=== PATIENT | female | born 1930 | race African-American/Black ===

== ENCOUNTER 2016-12-30 15:32 | Inpatient (IN) ==
--- NOTE | 2016-12-30 15:39 | Emergency Department Note ---
Disposition Clinical Impression: Lactic acidosis Altered mental status Qualifiers: Altered mental status type: disorientation Qualified Code(s): R41.0 - Disorientation, unspecified Sepsis Qualifiers: Sepsis type: sepsis due to unspecified organism Qualified Code(s): A41.9 - Sepsis, unspecified organism Disposition: Admitted As Inpatient Condition: Fair Altered Mental Status HPI - General Chief Complaint: ED Altered Mental Status Stated Complaint: ams Time Seen by Provider: 12/30/16 15:35 Source: EMS Mode of arrival: EMS Limitations: altered mental status Nursing Notes Reviewed: Yes Vital Signs Reviewed: Yes - History of Present Illness HPI Narrative: 86-year-old female history of hypertension hyperlipidemia diabetes presents to the ER from her nursing facility due to altered mental status. EMS reports she has a baseline history of dementia as per the nursing facility but that she has become more confused and less responsive they are over the last few days. They report fevers at the facility of 100.4. Patient has been less responsive to staff. They report that she is usually alert and talkative. Patient presents initially not answering many questions but will open her eyes intermittently and answer appropriately. She denies fevers, chest pain, shortness of breath or cough. She did state she had nausea. No other complaints. MD complaint: altered mental status Onset (ago): day(s) Timing confirmed by: caregiver Pain Severity: none Consistency of Symptoms: getting worse Associated symptoms: Reports: nausea/vomiting. Denies: chest pain, cough, fever - Related Data Home Medications Medication Instructions Recorded Confirmed Acetaminophen [Tylenol] 500 mg PO TID PRN 12/30/16 12/30/16 Atorvastatin [Lipitor] 10 mg PO HS 12/30/16 12/30/16 Clopidogrel Bisulfate [Plavix] 75 mg PO DAILY 12/30/16 12/30/16 Donepezil [Aricept] 10 mg PO HS 12/30/16 12/30/16 Ergocalciferol (VITAMIN D2) 50,000 unit PO QWEEK 12/30/16 12/30/16 [Vitamin D2] Furosemide [Lasix] 20 mg PO DAILY 12/30/16 12/30/16 Loratadine [Allergy Relief] 10 mg PO DAILY 12/30/16 12/30/16 Memantine HCl [Namenda Xr] 28 mg PO DAILY 08/18/17 08/18/17 Metformin HCl [Metformin HCl ER] 750 mg PO DAILY 12/30/16 12/30/16 Sertraline [Zoloft] 100 mg PO DAILY 12/30/16 12/30/16 amLODIPine [Norvasc] 5 mg PO DAILY 12/30/16 12/30/16 Allergies Allergy/AdvReac Type Severity Reaction Status Date / Time ciprofloxacin Allergy Anaphylaxis Verified 12/30/16 15:51 codeine Allergy Anaphylaxis Verified 12/30/16 15:51 Penicillins Allergy Anaphylaxis Verified 12/30/16 15:51 tetanus toxoid, adsorbed Allergy Anaphylaxis Verified 12/30/16 15:51 Tetracycline Allergy Anaphylaxis Verified 12/30/16 15:51 All systems ED: reviewed and negative except as stated. Constitutional: Denies: fever Cardiovascular: Denies: chest pain Respiratory: Denies: cough, dyspnea Gastrointestinal: Reports: nausea. Denies: abdominal pain, vomiting, diarrhea Past Medical History - Past Medical History Attestation: Yes The following information was validated with the patient. Source: patient Medical history: Reports: diabetes, hyperlipidemia, hypertension Surgical history: Reports: non-contributory Physical Exam - General Limitations: altered mental status General appearance: alert, other - Head Head exam: atraumatic, normocephalic, normal inspection - Eye Eye exam: Present: normal appearance, EOMI - ENT ENT exam: normal exam - Neck Neck exam: Present: normal inspection, full ROM - Chest Chest inspection: Present: normal inspection, symmetric chest wall rise - Respiratory Respiratory exam: Present: other (Diminished breath sounds bilaterally with rhonchi in all lung stoddard). Absent: prolonged expiratory phase - Cardiovascular Cardiovascular exam: Present: regular rate, normal rhythm, normal heart sounds - Abdominal Exam Abdominal exam: Present: soft, Non-Tender. Absent: tenderness - Extremities Exam Extremities exam: Present: normal inspection, full ROM - Expanded Upper Extremity Exam Shoulder exam: Present: normal inspection, full ROM Arm exam: Present: normal inspection, full ROM Elbow exam: Present: normal inspection, full ROM Forearm/Wrist exam: Present: normal inspection, full ROM Hand exam: Present: normal inspection, full ROM - Expanded Lower Extremity Exam Hip/Pelvis exam: Present: normal inspection, full ROM Upper leg exam: Present: normal inspection, full ROM Knee exam: Present: normal inspection, full ROM Lower leg exam: Present: normal inspection, full ROM Ankle exam: Present: normal inspection, full ROM Foot/toe exam: Present: normal inspection, full ROM - Neurological Exam Neurological exam: Present: alert, other (Patient intermittently answers questions correctly. Moves all extremities. No focal deficits.) - Skin Skin exam: Present: warm, dry, intact, normal color Course Course Narrative: Patient is seated examined. Vital signs reviewed. We will get an EKG chest x- ray CT scan of the head, labs urinalysis lactate and blood cultures. She is afebrile here. - Reevaluation(s) Reevaluation #1: We attempted to perform a lumbar puncture given her sepsis of unknown origin. Patient has what feels like a very arthritic spine and we were unable to collect fluid. We will treat her empirically. Vital Signs Temperature 97.7 F 12/30/16 15:34 Pulse Rate 69 12/30/16 15:34 Respiratory Rate 18 12/30/16 15:34 Blood Pressure 126/53 12/30/16 15:34 O2 Sat by Pulse Oximetry 95 12/30/16 15:34 Temperature 98.3 F 01/02/17 03:35 Pulse Rate 70 01/02/17 03:35 Respiratory Rate 18 01/02/17 03:35 Blood Pressure 117/74 01/02/17 03:35 O2 Sat by Pulse Oximetry 94 01/02/17 03:35 Oxygen Delivery Oxygen Delivery Room Air Altered Mental Status - MDM Narrative Medical decision making narrative: 86-year-old female presents to the ER due to altered mental status. Reports a baseline history of dementia. Here she is alert intermittently answering some questions. Her EKG is nonischemic. Chest x-ray is unremarkable. CT scan of the head shows no acute abnormalities. Labwork she has a slight white count of 12 and a urinalysis that does not really show UTI. Her lactate was elevated over 4. We gave her 2 L of IV fluids, vancomycin and Rocephin and will admit to the hospitalist for altered mental status, sepsis of unknown origin. Patient signed out to hospitalist. They request a CT of the abd/pelvis for evaluation of lactic acidosis. CT ordered. - Lab Data Lab results reviewed: Yes I reviewed the patient's lab results. Result diagrams: 01/01/17 03:56 12/31/16 04:41 Lab Results 12/30/16 12/30/16 12/30/16 Range/Units 16:08 16:08 16:08 WBC 12.2 H (4.3-11.1) K/mcL RBC 4.43 (3.82-4.97) M/mcL Hgb 11.5 (11.5-15.4) g/dL Hct 38.5 (35.3-44.9) % MCV 86.9 (83.0-100.0) fL MCH 26.0 L (28.0-33.3) pg MCHC 29.9 L (31.6-35.5) g/dL RDW 13.8 (11.5-14.5) % Plt Count 189 (140-400) K/mcL MPV 9.7 (9.4-12.4) fL Immature Gran % 0.5 (0-4) % Seg Neutrophils % 94.0 % Lymphocytes % 4.6 % Monocytes % 0.8 % Eosinophils % 0.0 % Basophils % 0.1 % Neutrophils # 11.5 H (1.6-8.9) K/mcL Lymphocytes # 0.6 (0.6-4.6) K/mcL Monocytes # 0.1 (0.0-1.3) K/mcL Eosinophils # 0.0 (0.0-0.6) K/mcL Basophils # 0.0 (0.0-0.2) K/mcL PT 13.1 H (9.4-12.1) Seconds INR 1.2 Sodium 139 (136-145) mEq/L Potassium 4.7 H (3.5-4.5) mEq/L Chloride 103 (98-109) mEq/L Carbon Dioxide 24 (19-29) mEq/L BUN 25 H (7-20) mg/dL Creatinine 1.43 H (0.57-1.11) mg/dL Est GFR ( Amer) 42 L (> 60) Est GFR (Non-Af Amer) 35 L (> 60) BUN/Creatinine Ratio 17 (6-26) Glucose 252 H (70-99) mg/dL POC Glucose (58-89) Calculated Osmolality 301 H (280-300) Lactic Acid (0.5-2.2) mmol/L Calcium 9.3 (8.6-10.8) mg/dL Total Bilirubin < 0.3 (0.2-1.2) mg/dL Direct Bilirubin 0.1 (0.0-0.5) mg/dL Indirect Bilirubin 0.2 (0.0-1.2) mg/dL AST 15 (5-34) Units/L ALT 9 (0-55) Units/L Alkaline Phosphatase 89 (38-126) Units/L Ammonia (18-72) mcmol/L Troponin I (0-0.03) ng/mL Serum Total Protein 7.0 (6.0-8.3) g/dL Albumin 2.7 L (3.5-5.0) g/dL Globulin 4.3 H (2.4-3.5) g/dL Albumin/Globulin Ratio 0.6 L (1.1-2.2) TSH 0.596 (0.350-4.840) mcIU/mL Urine Color (Yellow) Urine Clarity (Clear) Urine pH (5.0-8.0) pH Units Ur Specific Stigler (1.010-1.025) Urine Protein (Neg-Trace) mg/dL Urine Glucose (UA) (Normal) mg/dL Urine Ketones (Negative) mg/dL Urine Blood (Negative) Urine Nitrite (Negative) Urine Bilirubin (Negative) Urine Urobilinogen (Normal) mg/dL Ur Leukocyte Esterase (Negative) Urine Microscopic RBC (0-3) per hpf Urine Microscopic WBC (0-3) per hpf Ur Squamous Epith Cells (None-Few) per lpf Urine Bacteria (None-Few) per hpf Hyaline Casts (None-Few) per lpf Ur Culture Indicated? (NO) 12/30/16 12/30/16 12/30/16 Range/Units 16:08 16:08 16:08 WBC (4.3-11.1) K/mcL RBC (3.82-4.97) M/mcL Hgb (11.5-15.4) g/dL Hct (35.3-44.9) % MCV (83.0-100.0) fL MCH (28.0-33.3) pg MCHC (31.6-35.5) g/dL RDW (11.5-14.5) % Plt Count (140-400) K/mcL MPV (9.4-12.4) fL Immature Gran % (0-4) % Seg Neutrophils % % Lymphocytes % % Monocytes % % Eosinophils % % Basophils % % Neutrophils # (1.6-8.9) K/mcL Lymphocytes # (0.6-4.6) K/mcL Monocytes # (0.0-1.3) K/mcL Eosinophils # (0.0-0.6) K/mcL Basophils # (0.0-0.2) K/mcL PT (9.4-12.1) Seconds INR Sodium (136-145) mEq/L Potassium (3.5-4.5) mEq/L Chloride (98-109) mEq/L Carbon Dioxide (19-29) mEq/L BUN (7-20) mg/dL Creatinine (0.57-1.11) mg/dL Est GFR ( Amer) (> 60) Est GFR (Non-Af Amer) (> 60) BUN/Creatinine Ratio (6-26) Glucose (70-99) mg/dL POC Glucose (58-89) Calculated Osmolality (280-300) Lactic Acid 4.8 H* (0.5-2.2) mmol/L Calcium (8.6-10.8) mg/dL Total Bilirubin (0.2-1.2) mg/dL Direct Bilirubin (0.0-0.5) mg/dL Indirect Bilirubin (0.0-1.2) mg/dL AST (5-34) Units/L ALT (0-55) Units/L Alkaline Phosphatase (38-126) Units/L Ammonia 18 (18-72) mcmol/L Troponin I 0.02 (0-0.03) ng/mL Serum Total Protein (6.0-8.3) g/dL Albumin (3.5-5.0) g/dL Globulin (2.4-3.5) g/dL Albumin/Globulin Ratio (1.1-2.2) TSH (0.350-4.840) mcIU/mL Urine Color (Yellow) Urine Clarity (Clear) Urine pH (5.0-8.0) pH Units Ur Specific Stigler (1.010-1.025) Urine Protein (Neg-Trace) mg/dL Urine Glucose (UA) (Normal) mg/dL Urine Ketones (Negative) mg/dL Urine Blood (Negative) Urine Nitrite (Negative) Urine Bilirubin (Negative) Urine Urobilinogen (Normal) mg/dL Ur Leukocyte Esterase (Negative) Urine Microscopic RBC (0-3) per hpf Urine Microscopic WBC (0-3) per hpf Ur Squamous Epith Cells (None-Few) per lpf Urine Bacteria (None-Few) per hpf Hyaline Casts (None-Few) per lpf Ur Culture Indicated? (NO) 12/30/16 12/30/16 12/30/16 Range/Units 16:11 16:41 20:38 WBC (4.3-11.1) K/mcL RBC (3.82-4.97) M/mcL Hgb (11.5-15.4) g/dL Hct (35.3-44.9) % MCV (83.0-100.0) fL MCH (28.0-33.3) pg MCHC (31.6-35.5) g/dL RDW (11.5-14.5) % Plt Count (140-400) K/mcL MPV (9.4-12.4) fL Immature Gran % (0-4) % Seg Neutrophils % % Lymphocytes % % Monocytes % % Eosinophils % % Basophils % % Neutrophils # (1.6-8.9) K/mcL Lymphocytes # (0.6-4.6) K/mcL Monocytes # (0.0-1.3) K/mcL Eosinophils # (0.0-0.6) K/mcL Basophils # (0.0-0.2) K/mcL PT (9.4-12.1) Seconds INR Sodium (136-145) mEq/L Potassium (3.5-4.5) mEq/L Chloride (98-109) mEq/L Carbon Dioxide (19-29) mEq/L BUN (7-20) mg/dL Creatinine (0.57-1.11) mg/dL Est GFR ( Amer) (> 60) Est GFR (Non-Af Amer) (> 60) BUN/Creatinine Ratio (6-26) Glucose (70-99) mg/dL POC Glucose 248 H (58-89) Calculated Osmolality (280-300) Lactic Acid 2.4 H (0.5-2.2) mmol/L Calcium (8.6-10.8) mg/dL Total Bilirubin (0.2-1.2) mg/dL Direct Bilirubin (0.0-0.5) mg/dL Indirect Bilirubin (0.0-1.2) mg/dL AST (5-34) Units/L ALT (0-55) Units/L Alkaline Phosphatase (38-126) Units/L Ammonia (18-72) mcmol/L Troponin I (0-0.03) ng/mL Serum Total Protein (6.0-8.3) g/dL Albumin (3.5-5.0) g/dL Globulin (2.4-3.5) g/dL Albumin/Globulin Ratio (1.1-2.2) TSH (0.350-4.840) mcIU/mL Urine Color Dark Yellow (Yellow) Urine Clarity Cloudy A (Clear) Urine pH 5.0 (5.0-8.0) pH Units Ur Specific Stigler 1.027 H (1.010-1.025) Urine Protein 30 H (Neg-Trace) mg/dL Urine Glucose (UA) Normal (Normal) mg/dL Urine Ketones Trace H (Negative) mg/dL Urine Blood Negative (Negative) Urine Nitrite Negative (Negative) Urine Bilirubin Small H (Negative) Urine Urobilinogen Normal (Normal) mg/dL Ur Leukocyte Esterase Trace H (Negative) Urine Microscopic RBC 5-15 H (0-3) per hpf Urine Microscopic WBC 3-5 H (0-3) per hpf Ur Squamous Epith Cells Many H (None-Few) per lpf Urine Bacteria None Seen (None-Few) per hpf Hyaline Casts Many H (None-Few) per lpf Ur Culture Indicated? YES A (NO) 12/31/16 Range/Units 01:25 WBC (4.3-11.1) K/mcL RBC (3.82-4.97) M/mcL Hgb (11.5-15.4) g/dL Hct (35.3-44.9) % MCV (83.0-100.0) fL MCH (28.0-33.3) pg MCHC (31.6-35.5) g/dL RDW (11.5-14.5) % Plt Count (140-400) K/mcL MPV (9.4-12.4) fL Immature Gran % (0-4) % Seg Neutrophils % % Lymphocytes % % Monocytes % % Eosinophils % % Basophils % % Neutrophils # (1.6-8.9) K/mcL Lymphocytes # (0.6-4.6) K/mcL Monocytes # (0.0-1.3) K/mcL Eosinophils # (0.0-0.6) K/mcL Basophils # (0.0-0.2) K/mcL PT (9.4-12.1) Seconds INR Sodium (136-145) mEq/L Potassium (3.5-4.5) mEq/L Chloride (98-109) mEq/L Carbon Dioxide (19-29) mEq/L BUN (7-20) mg/dL Creatinine (0.57-1.11) mg/dL Est GFR ( Amer) (> 60) Est GFR (Non-Af Amer) (> 60) BUN/Creatinine Ratio (6-26) Glucose (70-99) mg/dL POC Glucose 194 H (58-89) Calculated Osmolality (280-300) Lactic Acid (0.5-2.2) mmol/L Calcium (8.6-10.8) mg/dL Total Bilirubin (0.2-1.2) mg/dL Direct Bilirubin (0.0-0.5) mg/dL Indirect Bilirubin (0.0-1.2) mg/dL AST (5-34) Units/L ALT (0-55) Units/L Alkaline Phosphatase (38-126) Units/L Ammonia (18-72) mcmol/L Troponin I (0-0.03) ng/mL Serum Total Protein (6.0-8.3) g/dL Albumin (3.5-5.0) g/dL Globulin (2.4-3.5) g/dL Albumin/Globulin Ratio (1.1-2.2) TSH (0.350-4.840) mcIU/mL Urine Color (Yellow) Urine Clarity (Clear) Urine pH (5.0-8.0) pH Units Ur Specific Stigler (1.010-1.025) Urine Protein (Neg-Trace) mg/dL Urine Glucose (UA) (Normal) mg/dL Urine Ketones (Negative) mg/dL Urine Blood (Negative) Urine Nitrite (Negative) Urine Bilirubin (Negative) Urine Urobilinogen (Normal) mg/dL Ur Leukocyte Esterase (Negative) Urine Microscopic RBC (0-3) per hpf Urine Microscopic WBC (0-3) per hpf Ur Squamous Epith Cells (None-Few) per lpf Urine Bacteria (None-Few) per hpf Hyaline Casts (None-Few) per lpf Ur Culture Indicated? (NO) - Radiology Data Radiology results reviewed: Yes I reviewed the patient's radiology results. Chest X-Ray 12/30/16 15:36 IMPRESSION: Cardiomegaly with no acute cardiopulmonary disease D/ / Giovanny Curtis MD / Giovanny Curtis MD Interpreting Provider: Giovanny Curtis MD Head CT 12/30/16 15:36 IMPRESSION: No acute intracranial abnormality. Diffuse mucosal thickening consistent with sinusitis. Left maxillary air-fluid level suggests acute component D/ / Gopal Longoria MD / Gopal Longoria MD Interpreting Provider: Gopal Longoria MD - EKG Data EKG attestation: Yes I reviewed and interpreted this EKG. EKG results narrative: EKG demonstrates sinus rhythm with a left bundle-branch block with a rate of 67 bpm. Prolonged IL interval of 205. QRS duration [address]-T wave changes in the lateral and inferior leads likely secondary to bundle branch block. No ST elevations or depressions. No acute ischemic findings. No significant changes from previous EKG dated 11/17/14. Attestation Statement - Attestation Attestation: I examined this patient and my medical decision-making was reviewed with the Resident Physician. I agree with the documented findings, disposition and treatment plan as described except to the extent set forth below. Patient to emergency department with altered mental status. Patient is usually awake and alert however they state today she was more somnolent. They state she had a fever at the shelter. On exam she is sleeping. She arouses to verbal stimulus. She follows basic commands. Plan. CT head with septic workup. Patient with elevated white count and lactate. She would meet septic shock criteria however we have no source. Attempt at LP unsuccessfully. Starting emperic antibiotics and will admit.
[2016-12-30 16:19] LABS: Basophils % 0.1 %; Hematocrit 38.5 % (35.3-44.9); Hemoglobin 11.5 g/dL (11.5-15.4); Immature Granulocytes % 0.5 % (0-4); Lymphocytes # 0.6 K/mcL (0.6-4.6); Lymphocytes % 4.6 %; Mean Corpuscular HGB Conc 29.9 g/dL (31.6-35.5); Mean Corpuscular Volume 86.9 fL (83.0-100.0); Mean Platelet Volume 9.7 fL (9.4-12.4); Monocytes # 0.1 K/mcL (0.0-1.3); Monocytes % 0.8 %; Neutrophils # 11.5 K/mcL (1.6-8.9); Platelet Count 189 K/mcL (140-400); Red Blood Count 4.43 M/mcL (3.82-4.97); Red Cell Distribution Width 13.8 % (11.5-14.5)
[2016-12-30 16:24] LABS: INR 1.2; Prothrombin Time 13.1 Seconds (9.4-12.1)
[2016-12-30] MEDS ORDERED: 0.9 % Sodium Chloride 1,000 ML IVC ONE ×2 (16:32→18:40)
[2016-12-30 16:35] LABS: Alanine Aminotransferase 9 Units/L (0-55); Albumin 2.7 g/dL (3.5-5.0); Albumin/Globulin Ratio 0.6 (1.1-2.2); Alkaline Phosphatase 89 Units/L (38-126); Aspartate Amino Transferase 15 Units/L (5-34); BUN/Creatinine Ratio 17 (6-26); Bilirubin,Direct 0.1 mg/dL (0.0-0.5); Bilirubin,Indirect 0.2 mg/dL (0.0-1.2); Blood Urea Nitrogen 25 mg/dL (7-20); Calcium 9.3 mg/dL (8.6-10.8); Carbon Dioxide 24 mEq/L (19-29); Chloride 103 mEq/L (98-109); Globulin 4.3 g/dL (2.4-3.5); Glucose 252 mg/dL (70-99); Osmolality,Calculated 301 (280-300); Potassium 4.7 mEq/L (3.5-4.5); Sodium 139 mEq/L (136-145); eGFR For African Americans 42 (> 60); eGFR For Non-African Americans 35 (> 60)
[2016-12-30 16:36] LABS: Bilirubin,Total < 0.3 mg/dL (0.2-1.2)
[2016-12-30 16:54] LABS: Bilirubin,Urine Small (Negative); Blood,Urine Negative (Negative); Clarity,Urine Cloudy (Clear); Color,Urine Dark Yellow (Yellow); Glucose,Urine (UA) Normal (Normal); Ketones,Urine Trace mg/dL (Negative); Leukocyte Esterase,Urine Trace (Negative); Nitrite,Urine Negative (Negative); Protein,Urine 30 mg/dL (Neg-Trace); Specific Gravity,Urine 1.027 (1.010-1.025); Urobilinogen,Urine Normal (Normal)
[2016-12-30 16:56] LABS: Thyroid Stimulating Hormone 0.596 mcIU/mL (0.350-4.840)
[2016-12-30 16:56] LABS: Bacteria,Urine None Seen per hpf (None-Few); Squamous Epithelial Cell,Urine Many per lpf (None-Few)
[2016-12-30 17:06] LABS: Hyaline Casts,Urine Many per lpf (None-Few)
[2016-12-30] MEDS ORDERED: *HR* Midazolam HCl 2 MG/2 ML VIAL IVP ONE (17:35)
[2016-12-30] MEDS ORDERED: Vancomycin 1,500 MG in D5% in Water 250 ML IVPB ONE (18:09)
[2016-12-30] MEDS ORDERED: Acetaminophen 325 MG TABLET PO PRN (21:46)
[2016-12-30] MEDS ORDERED: Dextrose Gel 15 GM PO PRN ×2 (21:53)
[2016-12-30] MEDS ORDERED: *HR* Dextrose 50 % in Water (Syg) 50 ML SYRINGE IVP PRN (21:53)
[2016-12-30] MEDS ORDERED: D5% in Water 1,000 ML IVC PRN (21:53)
--- NOTE | 2016-12-30 21:58 | Internal Med History&Physical ---
<Alberto Stubbs - Last Filed: 12/30/16 23:16> Date of Encounter: 12/30/16 Time of Encounter: 23:16 Assessment and Plan (1) Sepsis Current visit: Yes Status: Acute 86 y/o female presents with chief complaint of "altered mental status. Presents from senior living found to be less responsive, confused the past few days the temperature 100.4 Baseline Alzheimer's dementia only oriented to self According to daughter currently she is at baseline Lactic acidosis 4.8>>2.[address] head no acute changes CT abdomen and pelvis left lower lobe infiltrates and air in the bladder Chest x-ray: Cardiomegaly source of infection: pneumonia, UTI Plan: Ceftriaxone, azithromycin Blood cultures pending Sputum culture Urine culture Qualifiers: Sepsis type: sepsis due to unspecified organism Qualified Code(s): A41.9 - Sepsis, unspecified organism (2) Lactic acidosis Current visit: Yes Status: Acute Secondary to sepsis. Likely from underlying pneumonia or UTI. Trending down Plan: Treat underlying infection IV fluids (3) Altered mental status Current visit: Yes Status: Acute Likely secondary to infection According to daughter patient is now back to baseline. Plan: Continue to monitor. Treat underlying infection as above Qualifiers: Altered mental status type: disorientation Qualified Code(s): R41.0 - Disorientation, unspecified (4) Community acquired pneumonia Current visit: Yes Status: Acute CT scan indicates infiltrates and left lower lobe lactic acidosis, confusion and lung exam decreased breath sounds, coarse breath sounds Patient uses 3 L oxygen at nursing facility Currently using 2 L with saturation of 93% Plan: Ceftriaxone and azithromycin Await culture sensitivities DuoNeb's scheduled Qualifiers: Laterality: left Lung location: lower lobe of lung Qualified Code(s): J18.1 - Lobar pneumonia, unspecified organism (5) History of CVA (cerebrovascular accident) Current visit: Yes Status: Acute 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 I would like to have speech evaluate patient for needs of a modified diet. 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 This is complicated by history of hemorrhagic stroke which greatly accelerated or her dementia Plan: Continue home medications. Qualifiers: Alzheimer's disease onset: late-onset Dementia behavioral disturbance: without behavioral disturbance Qualified Code(s): G30.1 - Alzheimer's disease with late onset; F02.80 - Dementia in other diseases classified elsewhere without behavioral disturbance (8) History of depression Current visit: Yes Status: Acute History of depression. Stable. Continue sertraline (9) Hypertension Current visit: Yes Status: Acute Stable. Continue amlodipine Qualifiers: Hypertension type: essential hypertension Qualified Code(s): I10 - Essential (primary) hypertension (10) DVT prophylaxis Current visit: Yes Status: Acute Heparin subcutaneous (11) NIKUNJ (acute kidney injury) Current visit: Yes Status: Acute Secondary to sepsis Patient's creatinine is above baseline of 1.0 Currently 1.43 Plan: IV fluids Avoid contrast, NSAIDs BMP in the morning Internal Medicine - H&P: HPI Chief complaint: ams Admitted From: Long-term Nursing Facility Plans for Post Hospital Care: Transfer Long-Term Care History of present illness: Ms. Madrid is a 86 year old female presents from nursing facility with altered mental status. Patient has baseline dementia and is usually conversational however only alert and oriented to self but not to place or time (confirmed by daughter). Patient was sent to ER by nursing facility as she was confused and less responsive in the past few days and had a temperature 100.4. During my evaluation of the patient, she is awake and alert to self. Pleasant and very talkative, follows commands. ER workup showed the patient had a mild leukocytosis, lactic acidosis, urinalysis (dirty catch). Daughter states that her mental status today is no different than when she saw patient 3 months ago. 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 ) - Social History Smoking Status: Never smoker Smokeless Tobacco Status: No Alcohol use: none Drug use: none - Family History Brother Living Status: Hx Family Cardiac Disorders: Yes (HTN) Hx Family Neurologic Disorders: Yes (CVA) Hx Family Psychosocial Disorders: Yes (Alcoholism) Son Hx Family Cardiac Disorders: Yes Hx Family GI Disorders: Yes (hepatitis) Hx Family Endocrine Disorder: Yes (diabetes) Internal Medicine - H&P: Meds Acetaminophen [Tylenol] 500 mg PO TID PRN 12/30/16 [History] Atorvastatin [Lipitor] 10 mg PO HS 12/30/16 [History] Clopidogrel Bisulfate [Plavix] 75 mg PO DAILY 12/30/16 [History] Donepezil [Aricept] 10 mg PO HS 12/30/16 [History] Ergocalciferol (VITAMIN D2) [Vitamin D2] 50,000 unit PO QWEEK 12/30/16 [History] Furosemide [Lasix] 20 mg PO DAILY 12/30/16 [History] Loratadine [Allergy Relief] 10 mg PO DAILY 12/30/16 [History] Memantine HCl [Namenda Xr] 28 mg PO DAILY 12/30/16 [History] Metformin HCl [Metformin HCl ER] 750 mg PO DAILY 12/30/16 [History] Sertraline [Zoloft] 100 mg PO DAILY 12/30/16 [History] amLODIPine [Norvasc] 5 mg PO DAILY 12/30/16 [History] 3 Allergy/AdvReac Type Severity Reaction Status Date / Time ciprofloxacin Allergy Anaphylaxis Verified 12/30/16 15:51 codeine Allergy Anaphylaxis Verified 12/30/16 15:51 Penicillins Allergy Anaphylaxis Verified 12/30/16 15:51 tetanus toxoid, adsorbed Allergy Anaphylaxis Verified 12/30/16 15:51 Tetracycline Allergy Anaphylaxis Verified 12/30/16 15:51 ROS unobtainable: due to mental status All Systems PM: A 10-system review of systems was performed and is negative for pertinent findings except as documented above in the HPI. - Constitutional Vitals: Temp Pulse Resp BP Pulse Ox 97.7 F 56 18 105/48 93 12/30/16 21:05 12/30/16 21:05 12/30/16 21:05 12/30/16 21:05 12/30/16 21:05 - Neurological Exam Neurological exam: Present: alert (To self) Additional comments: Left hemiplegia, tongue deviated to the left - Expanded Neurological Exam Neurological exam expanded: Present: expressive aphasia, memory loss-remote event (. Hemorrhagic stroke) Patient oriented to: Present: person. Absent: place, time Speech: Present: expressive aphasia, garbled Cranial Nerves: EOM's intact PM: Normal, nystagmus PM: Normal, tongue deviation PM: Abnormal Left Cerebellar function: finger to nose: Abnormal Left, heel to castellanos: Abnormal Left Upper motor neuron: Babinski sign: Abnormal Left, pronator drift: Abnormal Left , sensory extinction: Abnormal Left DTR: achilles tendon (L): 0, achilles tendon (R): 2+, bicep (L): 0, bicep (R): 2 +, brachioradialis (L): 0, brachioradialis (R): 2+, patellar (L): 0, patellar (R ): 2+, tricep (L): 0, tricep (R): 2+ Coma Scale Eye Opening: Spontaneous Coma Scale Motor Response: Obeys Commands Coma Scale Verbal Response: Oriented Coma Scale Total: 15 - Other Additional findings: General: Obese, pleasant, without distress HEENT: Head atraumatic, normocephalic, EOMI, PERRLA, neck nontender to palpation , absent Lymphadenopathy, Moist Mucous Membranes, Heart: Regular rate and rhythm with no murmur Lungs: Coarse breath sounds diffusely, diminished Abdomen: Soft nontender, nondistended positive bowel sounds Skin: Warm and dry without open wounds or sores Extremities: Absent pedal edema, Vascular: Pedal and radial pulses 2 out of 4 Internal Med - H&P Results - Labs CBC & Chem 7: 12/30/16 16:08 12/30/16 16:08 <Nolan Coombs - Last Filed: 12/31/16 04:23> Date of Encounter: 12/31/16 Time of Encounter: 03:50 ROS unobtainable: due to mental status - Constitutional Vitals: Temp Pulse Resp BP Pulse Ox 97.7 F 62 17 121/48 97 12/31/16 03:25 12/31/16 03:25 12/31/16 03:25 12/31/16 03:25 12/31/16 03:25 General appearance: Present: A&O X 0, disheveled, no acute distress - Head Head exam: Present: atraumatic - Eye Eye exam: Present: EOMI. Absent: scleral icterus - ENT ENT exam: Present: mucous membranes dry, normal exam - Neck Neck exam general surgery: Present: full ROM, normal inspection, supple. Absent : lymphadenopathy, tenderness - Respiratory Respiratory exam: Present: rales, rhonchi. Absent: accessory muscle use, chest wall tenderness, CTAB, respiratory distress, wheezes - Cardiovascular Cardiovascular exam: Present: RRR, +S1, +S2. Absent: systolic murmur - GI/Abdominal GI/Abdominal exam: Present: normal bowel sounds, soft. Absent: hepatomegaly, mass, splenomegaly - Back Exam Back exam: Absent: CVA tenderness (L), CVA tenderness (R) - Neurological Exam Additional comments: NO nuchal rigidity; negative Kernig; negative Brudzinski - Skin Skin exam: Present: dry, warm. Absent: rash Internal Med - H&P Results - Labs CBC & Chem 7: 12/30/16 16:08 12/30/16 16:08 - Diagnostic Studies Chest x-ray Status: image reviewed by me (large heart, otherwise negative) CT scan - abdomen Additional comments: Report reviewed -- negative other than left lower lobe infiltrate - Attending Attestation I discussed the patient LA POSTA, PMH, ROS, lab data, and exam findings with Dr. Stubbs. I then saw and examined patient independently as well. Daughter is no longer present. Patient is pleasant, cooperative, interactive, and confused. I can obtain no history from patient. Per reported history, this appears to be her baseline. She shows no signs of distress presently. On exam, she has lung findings concerning for pneumonia. I agree with antibiotics and following patient clinically. Her lactic acidosis is much improved, and she shows no clinical signs of sepsis in my opinion. I also agree with IVF. She looks a little dry and would benefit from hydration. Other than my comments noted above and noted exam findings, I agree with Dr. Stubbs's assessment and plan.
[2016-12-30] MEDS ORDERED: 0.9 % Sodium Chloride 1,000 ML IVC SCH (22:00)
[2016-12-30] MEDS: Azithromycin 500 MG in D5% in Water 250 ML IVPB SCH (23:13)
[2016-12-30] MEDS: *HR* Heparin 5,000 UNIT/ML VIAL SQ SCH (23:13)
[2016-12-30] MEDS: Ipratropium/Albuterol Neb 3 ML IH SCH (23:51)
[2016-12-31] MEDS: Insulin LISPRO 300 UNITS/3 ML VIAL SQ SCH ×4 (02:38→18:22)
[2016-12-31] MEDS: Ipratropium/Albuterol Neb 3 ML IH SCH ×6 (03:52→23:22)
[2016-12-31 04:58] LABS: Basophils % 0.1 %; Hematocrit 34.1 % (35.3-44.9); Hemoglobin 10.2 g/dL (11.5-15.4); Immature Granulocytes % 0.4 % (0-4); Lymphocytes % 8.7 %; Mean Corpuscular HGB Conc 29.9 g/dL (31.6-35.5); Mean Corpuscular Hemoglobin 25.7 pg (28.0-33.3); Mean Corpuscular Volume 85.9 fL (83.0-100.0); Mean Platelet Volume 9.7 fL (9.4-12.4); Monocytes % 3.4 %; Platelet Count 176 K/mcL (140-400); Red Blood Count 3.97 M/mcL (3.82-4.97); Red Cell Distribution Width 13.7 % (11.5-14.5); Segmented Neutrophils % 87.4 %
[2016-12-31 04:59] LABS: Lymphocytes # 1.1 K/mcL (0.6-4.6); Monocytes # 0.4 K/mcL (0.0-1.3)
[2016-12-31 05:13] LABS: BUN/Creatinine Ratio 29 (6-26); Blood Urea Nitrogen 24 mg/dL (7-20); Calcium 8.3 mg/dL (8.6-10.8); Carbon Dioxide 25 mEq/L (19-29); Chloride 108 mEq/L (98-109); Glucose 144 mg/dL (70-99); Magnesium 1.7 mg/dL (1.6-2.6); Osmolality,Calculated 299 (280-300); Phosphorous 2.9 mg/dL (2.3-4.7); Sodium 141 mEq/L (136-145); eGFR For African Americans > 60 (> 60); eGFR For Non-African Americans > 60 (> 60)
[2016-12-31] MEDS: *HR* Heparin 5,000 UNIT/ML VIAL SQ SCH ×2 (05:32→18:21)
[2016-12-31] MEDS: amLODIPine 5 MG TABLET PO SCH (10:00)
[2016-12-31] MEDS: Famotidine 20 MG TABLET PO SCH ×2 (10:00→19:44)
[2016-12-31] MEDS: (Memantine Hcl [Namenda Xr] 28 MG) PO SCH (10:00)
[2016-12-31] MEDS: Aspirin 81 MG TAB.CHEW PO SCH (10:00)
--- NOTE | 2016-12-31 14:55 | Internal Med Progress Note ---
Date of Encounter: 12/31/16 Time of Encounter: 08:20 - Assessment and plan (1) Sepsis Current Visit: Yes Status: Acute Assessment and plan: Sepsis present on admission - secondary to UTI and left lower lobe community- acquired pneumonia possibly due to strep pneumoniae Continue IV azithromycin, IV Rocephin, DuoNeb breathing treatment, IV fluids Chest x-ray - cardiomegaly with no acute cardiopulmonary disease CT head - no acute intracranial abnormality CT abdomen and pelvis - no inflammation or abscess identified, diverticulosis, patchy consolidation in left lower lobe Troponin - 0.02 WBC - 12.6 UA - trace leukocyte esterase Cultures - pending Cardiac telemetry, continue to monitor closely, labs in a.m. Qualifiers: Sepsis type: sepsis due to unspecified organism Qualified Code(s): A41.9 - Sepsis, unspecified organism (2) NIKUNJ (acute kidney injury) Current Visit: Yes Status: Acute Assessment and plan: Acute kidney injury - likely secondary to sepsis - now improved Continue IV fluids, labs in a.m. (3) Alzheimer's dementia Current Visit: Yes Status: Chronic Assessment and plan: Likely has advanced Alzheimer's dementia - Aricept and Namenda Qualifiers: Alzheimer's disease onset: late-onset Dementia behavioral disturbance: without behavioral disturbance Qualified Code(s): G30.1 - Alzheimer's disease with late onset; F02.80 - Dementia in other diseases classified elsewhere without behavioral disturbance (4) Diabetes mellitus Current Visit: Yes Status: Chronic Assessment and plan: Diabetes mellitus type 2, [id number], hyperglycemia Continue insulin sliding scale, glucose checks Qualifiers: Diabetes mellitus type: type 2 Diabetes mellitus complication status: with unspecified complications 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: without care home use Qualified Code(s): E11.8 - Type 2 diabetes mellitus with unspecified complications (5) Hypertension Current Visit: Yes Status: Chronic Assessment and plan: Essential hypertension, controlled, continue current meds, monitor Qualifiers: Hypertension type: essential hypertension Qualified Code(s): I10 - Essential (primary) hypertension (6) History of CVA (cerebrovascular accident) Current Visit: Yes Status: Chronic Assessment and plan: 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 Patient is awake and alert. Not in any distress. She is unable to provide good history due to dementia. She is able to follow simple verbal commands. Denies any chest pain or shortness of breath. No fever. Hemodynamically stable. No other acute events or complaints. Admitted for sepsis likely due to UTI and community-acquired pneumonia. Patient seems to be at baseline mental status. - Constitutional Vitals: Temp Pulse Resp BP Pulse Ox 98.1 F 64 16 117/48 96 12/31/16 11:51 12/31/16 11:51 12/31/16 11:51 12/31/16 11:51 12/31/16 11:51 General appearance: Present: A&O X 0, disheveled, pleasant, no acute distress, obese Exam: Patient is awake, not in any distress, able to follow simple verbal commands, unable to provide any history due to dementia - Head Head exam: Present: atraumatic - Eye Eye exam: Present: EOMI - ENT ENT exam: Present: mucous membranes dry - Respiratory Respiratory exam: Present: CTAB. Absent: rales, rhonchi, wheezes, tachypnea - Cardiovascular Cardiovascular exam: Present: RRR, +S1, +S2 - GI/Abdominal GI/Abdominal exam: Present: soft. Absent: distended, firm, guarding, tenderness - Extremities Exam Extremities exam: Present: radial pulses palpable and symmetrical. Absent: cyanotic, pedal edema - Neurological Exam Neurological exam: Absent: facial droop Additional comments: Patient does have left hemiplegia, no other obvious focal neurological deficits , patient does have some expressive aphasia, she is unable to provide good history likely due to dementia, follows simple verbal commands Internal Medicine: Result - Labs CBC & Chem 7: 12/31/16 04:41 12/31/16 04:41 Labs: Short CBC 12/31/16 Range/Units 04:41 WBC 12.6 H (4.3-11.1) K/mcL Hgb 10.2 L (11.5-15.4) g/dL Hct 34.1 L (35.3-44.9) % Plt Count 176 (140-400) K/mcL Neutrophils # 11.0 H (1.6-8.9) K/mcL BMP 12/31/16 04:41 Sodium 141 Potassium 4.0 Chloride 108 Carbon Dioxide 25 BUN 24 H Creatinine 0.84 Glucose 144 H Calcium 8.3 L - ABG Interpretation ABG results: PT/INR, D-dimer PT 13.1 Seconds (9.4-12.1) H 12/30/16 16:08 Consult Discharge Plan - Plan Referrals: NONE,PCP [Primary Care Provider] -
[2016-12-31] MEDS: Azithromycin 500 MG in D5% in Water 250 ML IVPB SCH (22:29)
[2017-01-01] MEDS: Insulin LISPRO 300 UNITS/3 ML VIAL SQ SCH ×4 (00:36→17:58)
[2017-01-01] MEDS: Ipratropium/Albuterol Neb 3 ML IH SCH ×6 (03:34→23:13)
[2017-01-01 04:09] LABS: Basophils % 0.2 %; Eosinophils % 0.1 %; Hemoglobin 9.9 g/dL (11.5-15.4); Immature Granulocytes % 0.4 % (0-4); Lymphocytes # 2.2 K/mcL (0.6-4.6); Lymphocytes % 17.6 %; Mean Corpuscular HGB Conc 30.9 g/dL (31.6-35.5); Mean Corpuscular Hemoglobin 26.6 pg (28.0-33.3); Mean Platelet Volume 9.9 fL (9.4-12.4); Monocytes # 0.8 K/mcL (0.0-1.3); Monocytes % 6.5 %; Neutrophils # 9.5 K/mcL (1.6-8.9); Platelet Count 178 K/mcL (140-400); Red Blood Count 3.72 M/mcL (3.82-4.97); Red Cell Distribution Width 13.7 % (11.5-14.5); Segmented Neutrophils % 75.2 %
[2017-01-01] MEDS: *HR* Heparin 5,000 UNIT/ML VIAL SQ SCH ×2 (05:31→17:48)
[2017-01-01] MEDS: (Memantine Hcl [Namenda Xr] 28 MG) PO SCH (09:44)
[2017-01-01] MEDS: Famotidine 20 MG TABLET PO SCH (09:44)
[2017-01-01] MEDS: Aspirin 81 MG TAB.CHEW PO SCH (09:44)
[2017-01-01] MEDS: amLODIPine 5 MG TABLET PO SCH (09:44)
--- NOTE | 2017-01-01 10:22 | Electrocardiograph Report ---
[place] [id number] Test Date: 2016-12-30 Pat Name: Nicky Madrid Department: 102 Room: 3B52 Gender: F [employer]: Nicole : 1930 Requested By: Eusebio Mason Order Number: [id number] Reading MD: Shayan Mcmullen MD Measurements Intervals [place] Rate: 67 P: 20 NE: 205 QRS: 4 QRSD: 133 T: 159 QT: 462 QTc: 477 Interpretive Statements SINUS RHYTHM LEFT BUNDLE BRANCH BLOCK Electronically Signed On 01-01-2017 10:20:52 EDT by Shayan Mcmullen MD
--- NOTE | 2017-01-01 16:16 | Internal Med Progress Note ---
Date of Encounter: 01/01/17 Time of Encounter: 08:45 - Assessment and plan (1) Sepsis Current Visit: Yes Status: Acute Assessment and plan: Sepsis present on admission, with acute encephalopathy - secondary to UTI and left lower lobe community-acquired pneumonia possibly due to strep pneumoniae - improving slowly Continue IV azithromycin, IV Rocephin, DuoNeb breathing treatment, IV fluids Patient seems to be back to baseline mental status Chest x-ray - cardiomegaly with no acute cardiopulmonary disease CT head - no acute intracranial abnormality CT abdomen and pelvis - no inflammation or abscess identified, diverticulosis, patchy consolidation in left lower lobe Troponin - 0.02 WBC - 12.6 UA - trace leukocyte esterase Cultures - gram-positive cocci in blood Cardiac telemetry, continue to monitor closely, labs in a.m. Qualifiers: Sepsis type: sepsis due to unspecified organism Qualified Code(s): A41.9 - Sepsis, unspecified organism (2) NIKUNJ (acute kidney injury) Current Visit: Yes Status: Acute Assessment and plan: Acute kidney injury - likely secondary to sepsis - now improved Continue IV fluids, labs in a.m. (3) Alzheimer's dementia Current Visit: Yes Status: Chronic Assessment and plan: Likely has advanced Alzheimer's dementia - Aricept and Namenda Without behavioral disturbances Qualifiers: Alzheimer's disease onset: late-onset Dementia behavioral disturbance: without behavioral disturbance Qualified Code(s): G30.1 - Alzheimer's disease with late onset; F02.80 - Dementia in other diseases classified elsewhere without behavioral disturbance (4) Diabetes mellitus Current Visit: Yes Status: Chronic Assessment and plan: Diabetes mellitus type 2, [id number]-vgfweapqy, hyperglycemia Continue insulin sliding scale, glucose checks Qualifiers: Diabetes mellitus type: type 2 Diabetes mellitus complication status: with unspecified complications 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 use Qualified Code(s): E11.8 - Type 2 diabetes mellitus with unspecified complications (5) Hypertension Current Visit: Yes Status: Chronic Assessment and plan: Essential hypertension, controlled, continue current meds, monitor Qualifiers: Hypertension type: essential hypertension Qualified Code(s): I10 - Essential (primary) hypertension (6) History of CVA (cerebrovascular accident) Current Visit: Yes Status: Chronic Assessment and plan: 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 Patient is awake and alert. Not in any distress. She is unable to provide good history due to dementia. She is able to follow simple verbal commands. Denies any chest pain or shortness of breath. No fever. Hemodynamically stable. Patient seems to be mostly bedbound. She requires assistance with feeding. Admitted for sepsis likely due to UTI and community-acquired pneumonia. Patient seems to be at baseline mental status. No other acute events or complaints. - Constitutional Vitals: Temp Pulse Resp BP Pulse Ox 98.6 F 70 16 142/74 98 01/01/17 15:49 01/01/17 15:49 01/01/17 15:49 01/01/17 15:49 01/01/17 15:49 General appearance: Present: A&O X 1, disheveled, pleasant, no acute distress, obese Exam: Patient is awake, not in any distress, able to follow simple verbal commands, able to verbalize, unable to provide any history due to dementia - Head Head exam: Present: atraumatic - Eye Eye exam: Absent: scleral icterus - ENT ENT exam: Present: mucous membranes dry - Respiratory Respiratory exam: Present: CTAB. Absent: rales, rhonchi, wheezes, tachypnea - Cardiovascular Cardiovascular exam: Present: RRR, +S1, +S2 - GI/Abdominal GI/Abdominal exam: Present: soft. Absent: distended, firm, guarding, tenderness - Extremities Exam Extremities exam: Present: radial pulses palpable and symmetrical. Absent: cyanotic, pedal edema - Neurological Exam Neurological exam: Absent: facial droop Additional comments: Patient does have left hemiplegia, no other obvious focal neurological deficits , patient does have mild expressive aphasia, she is unable to provide good history likely due to moderate dementia, follows simple verbal commands, able to verbalize little bit Internal Medicine: Result - Labs CBC & Chem 7: 01/01/17 03:56 12/31/16 04:41 Labs: Short CBC 01/01/17 Range/Units 03:56 WBC 12.6 H (4.3-11.1) K/mcL Hgb 9.9 L (11.5-15.4) g/dL Hct 32.0 L (35.3-44.9) % Plt Count 178 (140-400) K/mcL Neutrophils # 9.5 H (1.6-8.9) K/mcL - ABG Interpretation ABG results: PT/INR, D-dimer PT 13.1 Seconds (9.4-12.1) H 12/30/16 16:08 Consult Discharge Plan - Plan Referrals: NONE,PCP [Primary Care Provider] -
[2017-01-01] MEDS: Azithromycin 500 MG in D5% in Water 250 ML IVPB SCH (22:43)
[2017-01-02] MEDS: Insulin LISPRO 300 UNITS/3 ML VIAL SQ SCH ×4 (00:01→18:22)
[2017-01-02] MEDS: Ipratropium/Albuterol Neb 3 ML IH SCH ×6 (05:14→23:56)
[2017-01-02] MEDS: *HR* Heparin 5,000 UNIT/ML VIAL SQ SCH ×2 (05:22→18:22)
[2017-01-02] MEDS: (Memantine Hcl [Namenda Xr] 28 MG) PO SCH (08:17)
[2017-01-02] MEDS: Aspirin 81 MG TAB.CHEW PO SCH (08:17)
[2017-01-02] MEDS: Famotidine 20 MG TABLET PO SCH (08:17)
[2017-01-02] MEDS: amLODIPine 5 MG TABLET PO SCH (08:17)
[2017-01-02 09:12] LABS: BUN/Creatinine Ratio 24 (6-26); Blood Urea Nitrogen 20 mg/dL (7-20); Calcium 8.9 mg/dL (8.6-10.8); Carbon Dioxide 20 mEq/L (19-29); Chloride 111 mEq/L (98-109); Glucose 102 mg/dL (70-99); Osmolality,Calculated 295 (280-300); Potassium 4.8 mEq/L (3.5-4.5); Sodium 141 mEq/L (136-145); eGFR For African Americans > 60 (> 60); eGFR For Non-African Americans > 60 (> 60)
[2017-01-02 09:49] LABS: Basophils % 0.2 %; Eosinophils # 0.1 K/mcL (0.0-0.6); Eosinophils % 1.1 %; Hematocrit 33.3 % (35.3-44.9); Hemoglobin 10.2 g/dL (11.5-15.4); Immature Granulocytes % 0.4 % (0-4); Immature Platelets 3.6 % (1.1-6.1); Lymphocytes % 23.4 %; Mean Corpuscular HGB Conc 30.6 g/dL (31.6-35.5); Mean Corpuscular Volume 84.7 fL (83.0-100.0); Mean Platelet Volume 11.4 fL (9.4-12.4); Monocytes # 0.6 K/mcL (0.0-1.3); Monocytes % 6.4 %; Neutrophils # 5.9 K/mcL (1.6-8.9); Red Blood Count 3.93 M/mcL (3.82-4.97); Red Cell Distribution Width 13.7 % (11.5-14.5); Segmented Neutrophils % 68.5 %
[2017-01-02 09:50] LABS: Platelet Count 80 K/mcL (140-400)
--- NOTE | 2017-01-02 17:02 | Internal Med Progress Note ---
Date of Encounter: 01/02/17 Time of Encounter: 08:35 - Assessment and plan (1) Sepsis Current Visit: Yes Status: Acute Assessment and plan: Sepsis present on admission, with acute encephalopathy - secondary to UTI and Left lower lobe community-acquired pneumonia possibly due to strep pneumoniae - improving slowly Continue IV azithromycin, IV Rocephin, DuoNeb breathing treatment, IV fluids Patient seems to be back to baseline mental status Chest x-ray - cardiomegaly with no acute cardiopulmonary disease CT head - no acute intracranial abnormality CT abdomen and pelvis - no inflammation or abscess identified, diverticulosis, patchy consolidation in left lower lobe Troponin - 0.02 WBC - 8.6 UA - trace leukocyte esterase Cultures - gram-positive cocci in blood (one set, probable contamination) Cardiac telemetry, continue to monitor closely, labs in a.m. I did spend discharged to ECF in a.m., discharge with Levaquin Qualifiers: Sepsis type: sepsis due to unspecified organism Qualified Code(s): A41.9 - Sepsis, unspecified organism (2) NIKUNJ (acute kidney injury) Current Visit: Yes Status: Acute Assessment and plan: Acute kidney injury - likely secondary to sepsis - now resolved Continue IV fluids, labs in a.m. (3) Alzheimer's dementia Current Visit: Yes Status: Chronic Assessment and plan: Likely has advanced Alzheimer's dementia - Aricept and Namenda Without behavioral disturbances Qualifiers: Alzheimer's disease onset: late-onset Dementia behavioral disturbance: without behavioral disturbance Qualified Code(s): G30.1 - Alzheimer's disease with late onset; F02.80 - Dementia in other diseases classified elsewhere without behavioral disturbance (4) Diabetes mellitus Current Visit: Yes Status: Chronic Assessment and plan: Diabetes mellitus type 2, [id number], hyperglycemia Continue insulin sliding scale, glucose checks Qualifiers: Diabetes mellitus type: type 2 Diabetes mellitus complication status: with unspecified complications Diabetes mellitus superintendent container terminal insulin use: without chcf use Qualified Code(s): E11.8 - Type 2 diabetes mellitus with unspecified complications (5) Hypertension Current Visit: Yes Status: Chronic Assessment and plan: Essential hypertension, controlled, continue current meds, monitor Qualifiers: Hypertension type: essential hypertension Qualified Code(s): I10 - Essential (primary) hypertension (6) History of CVA (cerebrovascular accident) Current Visit: Yes Status: Chronic Assessment and plan: 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 Patient is awake and alert. Not in any distress. She is unable to provide good history due to dementia. She is able to follow simple verbal commands. Denies any chest pain or shortness of breath. No fever. Hemodynamically stable. Patient seems to be mostly bedbound. She requires assistance with feeding. Admitted for sepsis likely due to UTI and community-acquired pneumonia. Patient seems to be at baseline mental status. No other acute events or complaints. Anticipate discharge to [facility] soon. - Constitutional Vitals: Temp Pulse Resp BP Pulse Ox 99.2 F 66 14 101/64 97 01/02/17 14:56 01/02/17 14:56 01/02/17 14:56 01/02/17 14:56 01/02/17 14:56 General appearance: Present: A&O X 1, pleasant, no acute distress, obese Exam: Patient is awake, not in any distress, able to follow simple verbal commands, able to verbalize, unable to provide any history due to dementia - Head Head exam: Present: atraumatic - ENT ENT exam: Present: mucous membranes moist - Respiratory Respiratory exam: Present: CTAB. Absent: rales, rhonchi, wheezes, tachypnea - Cardiovascular Cardiovascular exam: Present: RRR, +S1, +S2 - GI/Abdominal GI/Abdominal exam: Present: soft. Absent: distended, firm, guarding, tenderness - Extremities Exam Extremities exam: Present: radial pulses palpable and symmetrical. Absent: cyanotic, pedal edema - Neurological Exam Neurological exam: Absent: facial droop Additional comments: Patient does have left hemiplegia, no other obvious focal neurological deficits , patient does have mild expressive aphasia, she is unable to provide good history likely due to moderate dementia, follows simple verbal commands, able to verbalize little bit, seems to be at baseline Internal Medicine: Result - Labs CBC & Chem 7: 01/02/17 08:49 01/02/17 08:49 Labs: Short CBC 01/02/17 Range/Units 08:49 WBC 8.6 (4.3-11.1) K/mcL Hgb 10.2 L (11.5-15.4) g/dL Hct 33.3 L (35.3-44.9) % Plt Count 80 L D (140-400) K/mcL Neutrophils # 5.9 (1.6-8.9) K/mcL BMP 01/02/17 08:49 Sodium 141 Potassium 4.8 H Chloride 111 H Carbon Dioxide 20 BUN 20 Creatinine 0.83 Glucose 102 H Calcium 8.9 - ABG Interpretation ABG results: PT/INR, D-dimer PT 13.1 Seconds (9.4-12.1) H 12/30/16 16:08 Consult Discharge Plan - Plan Referrals: NONE,PCP [Primary Care Provider] -
[2017-01-03] MEDS: Insulin LISPRO 300 UNITS/3 ML VIAL SQ SCH ×4 (00:04→17:58)
[2017-01-03] MEDS: Azithromycin 500 MG in D5% in Water 250 ML IVPB SCH (00:33)
[2017-01-03 03:44] LABS: Basophils % 0.3 %; Eosinophils # 0.2 K/mcL (0.0-0.6); Eosinophils % 2.1 %; Hemoglobin 9.6 g/dL (11.5-15.4); Immature Granulocytes % 0.4 % (0-4); Lymphocytes # 1.7 K/mcL (0.6-4.6); Lymphocytes % 21.2 %; Mean Corpuscular Volume 86.7 fL (83.0-100.0); Monocytes # 0.6 K/mcL (0.0-1.3); Monocytes % 7.7 %; Neutrophils # 5.4 K/mcL (1.6-8.9); Platelet Count 197 K/mcL (140-400); Red Blood Count 3.69 M/mcL (3.82-4.97); Red Cell Distribution Width 13.6 % (11.5-14.5); Segmented Neutrophils % 68.3 %
[2017-01-03 03:57] LABS: BUN/Creatinine Ratio 21 (6-26); Blood Urea Nitrogen 18 mg/dL (7-20); Calcium 8.9 mg/dL (8.6-10.8); Carbon Dioxide 28 mEq/L (19-29); Chloride 108 mEq/L (98-109); Glucose 125 mg/dL (70-99); Osmolality,Calculated 299 (280-300); Sodium 143 mEq/L (136-145); eGFR For African Americans > 60 (> 60); eGFR For Non-African Americans > 60 (> 60)
[2017-01-03] MEDS: Ipratropium/Albuterol Neb 3 ML IH SCH ×6 (04:38→23:13)
[2017-01-03] MEDS: *HR* Heparin 5,000 UNIT/ML VIAL SQ SCH ×2 (06:15→17:57)
[2017-01-03] MEDS: Aspirin 81 MG TAB.CHEW PO SCH (08:08)
[2017-01-03] MEDS: Famotidine 20 MG TABLET PO SCH (08:08)
[2017-01-03] MEDS: amLODIPine 5 MG TABLET PO SCH (08:08)
[2017-01-03] MEDS: (Memantine Hcl [Namenda Xr] 28 MG) PO SCH (08:09)
--- NOTE | 2017-01-03 17:22 | Internal Med Progress Note ---
Date of Encounter: 01/03/17 Time of Encounter: 17:21 - Assessment and plan (1) Acute and chronic respiratory failure with hypoxia Current Visit: Yes Status: Acute Assessment and plan: Due to Pneumonia She does have moderate wheezing with reactive airway disease started her on IV steroids Duonebs Will try to wean her off the O2 as tolerated Due to her dementia, she is not able to cough out all the secretions Asked RT for Chest percussions therapy (2) Reactive airway disease with acute exacerbation Current Visit: Yes Status: Acute Qualifiers: Qualified Code(s): J45.901 - Unspecified asthma with (acute) exacerbation (3) Pneumonia Current Visit: Yes Status: Acute Assessment and plan: Mostly bacterial Pneumonia cont empirical abx - Rocephin no need of Azithromycin Qualifiers: Qualified Code(s): J18.9 - Pneumonia, unspecified organism (4) Sepsis Current Visit: Yes Status: Acute Assessment and plan: Resolved She did have blood cx 1/2 positive for Staph Auricularis - mostly contaminated no further work up needed Qualifiers: Sepsis type: sepsis due to unspecified organism Qualified Code(s): A41.9 - Sepsis, unspecified organism (5) UTI (urinary tract infection) Current Visit: Yes Status: Acute Assessment and plan: Urine cx - no growth Qualifiers: Qualified Code(s): N39.0 - Urinary tract infection, site not specified (6) Altered mental status Current Visit: Yes Status: Acute Assessment and plan: due to sepsis seems to be at baseline now Qualifiers: Altered mental status type: disorientation Qualified Code(s): R41.0 - Disorientation, unspecified (7) History of CVA (cerebrovascular accident) Current Visit: Yes Status: Chronic Assessment and plan: 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 (8) Alzheimer's dementia Current Visit: Yes Status: Chronic Assessment and plan: Likely has advanced Alzheimer's dementia - Aricept and Namenda Without behavioral disturbances Qualifiers: Alzheimer's disease onset: late-onset Dementia behavioral disturbance: without behavioral disturbance Qualified Code(s): G30.1 - Alzheimer's disease with late onset; F02.80 - Dementia in other diseases classified elsewhere without behavioral disturbance (9) Hypertension Current Visit: Yes Status: Chronic Assessment and plan: Essential hypertension, controlled, continue current meds, monitor Qualifiers: Hypertension type: essential hypertension Qualified Code(s): I10 - Essential (primary) hypertension (10) NIKUNJ (acute kidney injury) Current Visit: Yes Status: Acute Assessment and plan: Acute kidney injury - likely secondary to sepsis - now resolved (11) DVT prophylaxis Current Visit: Yes Status: Acute Assessment and plan: Continue heparin subcutaneous - Subjective Interval history: Ms. Madrid is a 86 year old female presents from nursing facility with altered mental status. Patient has baseline dementia and is usually conversational however only alert and oriented to self but not to place or time (confirmed by daughter). Patient was sent to ER by nursing facility as she was confused and less responsive in the past few days and had a temperature 100.4. During my evaluation of the patient, she is awake and alert to self. Pleasant and very talkative, follows commands. ER workup showed the patient had a mild leukocytosis, lactic acidosis, urinalysis (dirty catch). Pt was admitted for sepsis with UTI and Pneumonia. She was started on empirical abx. She is still hypoxic and requiring 3 lit O2 during day time and needed 5 lit at bed time as per nurse. She is alert, awake and pleasantly demented. - Constitutional Vitals: Temp Pulse Resp BP Pulse Ox 98.8 F 70 18 118/65 97 01/03/17 15:30 01/03/17 15:30 01/03/17 15:30 01/03/17 15:30 01/03/17 15:30 General appearance: Present: A&O X 1, pleasant, no acute distress, obese - Head Head exam: Present: atraumatic, normal inspection - Respiratory Respiratory exam: Present: decreased breath sounds, respiratory distress (mild) , rhonchi, wheezes. Absent: rales - Cardiovascular Cardiovascular exam: Present: RRR, +S1, +S2. Absent: systolic murmur - Extremities Exam Extremities exam: Present: pedal edema. Absent: calf tenderness, tenderness - Neurological Exam Neurological exam: Present: altered - Psychiatric Additional comments: Demented Internal Medicine: Result - Labs CBC & Chem 7: 01/03/17 03:12 01/03/17 03:12 Labs: Short CBC 01/03/17 Range/Units 03:12 WBC 7.9 (4.3-11.1) K/mcL Hgb 9.6 L (11.5-15.4) g/dL Hct 32.0 L (35.3-44.9) % Plt Count 197 D (140-400) K/mcL Neutrophils # 5.4 (1.6-8.9) K/mcL BMP 01/03/17 03:12 Sodium 143 Potassium 4.0 Chloride 108 Carbon Dioxide 28 BUN 18 Creatinine 0.84 Glucose 125 H Calcium 8.9 - ABG Interpretation ABG results: PT/INR, D-dimer PT 13.1 Seconds (9.4-12.1) H 12/30/16 16:08 Consult Discharge Plan - Plan Referrals: NONE,PCP [Primary Care Provider] - Prescriptions: Cephalexin [Keflex] 500 mg PO TID #9 capsule
[2017-01-03] MEDS: MethylPREDNISolone 40 MG/ML VIAL IVP SCH (17:57)
[2017-01-04] MEDS: Insulin LISPRO 300 UNITS/3 ML VIAL SQ SCH ×3 (01:14→13:49)
[2017-01-04] MEDS: Ipratropium/Albuterol Neb 3 ML IH SCH ×3 (03:34→11:34)
[2017-01-04 03:57] LABS: Hematocrit 32.4 % (35.3-44.9); Immature Granulocytes % 0.3 % (0-4); Lymphocytes # 0.6 K/mcL (0.6-4.6); Lymphocytes % 9.4 %; Mean Corpuscular HGB Conc 30.9 g/dL (31.6-35.5); Mean Corpuscular Hemoglobin 26.4 pg (28.0-33.3); Mean Corpuscular Volume 85.5 fL (83.0-100.0); Mean Platelet Volume 9.8 fL (9.4-12.4); Monocytes # 0.1 K/mcL (0.0-1.3); Monocytes % 1.3 %; Neutrophils # 5.7 K/mcL (1.6-8.9); Platelet Count 195 K/mcL (140-400); Red Blood Count 3.79 M/mcL (3.82-4.97); Red Cell Distribution Width 13.5 % (11.5-14.5)
[2017-01-04 04:15] LABS: BUN/Creatinine Ratio 28 (6-26); Blood Urea Nitrogen 23 mg/dL (7-20); Carbon Dioxide 25 mEq/L (19-29); Chloride 109 mEq/L (98-109); Glucose 174 mg/dL (70-99); Osmolality,Calculated 302 (280-300); Potassium 4.6 mEq/L (3.5-4.5); Sodium 142 mEq/L (136-145); eGFR For African Americans > 60 (> 60); eGFR For Non-African Americans > 60 (> 60)
[2017-01-04] MEDS: *HR* Heparin 5,000 UNIT/ML VIAL SQ SCH (05:44)
[2017-01-04] MEDS: MethylPREDNISolone 40 MG/ML VIAL IVP SCH (06:03)
[2017-01-04] MEDS: Famotidine 20 MG TABLET PO SCH (09:25)
[2017-01-04] MEDS: Aspirin 81 MG TAB.CHEW PO SCH (09:25)
[2017-01-04] MEDS: (Memantine Hcl [Namenda Xr] 28 MG) PO SCH (09:25)
[2017-01-04] MEDS: amLODIPine 5 MG TABLET PO SCH (09:25)
[2017-01-04 11:28] VITALS: BP 151/96
--- NOTE | 2017-01-04 13:43 | Discharge Summary ---
Date of Encounter: 01/04/17 Time of Encounter: 13:40 - Discharge Diagnosis (1) Acute and chronic respiratory failure with hypoxia Priority: Primary Status: Acute (2) Reactive airway disease with acute exacerbation Priority: Primary Status: Acute Qualifiers: Qualified Code(s): J45.901 - Unspecified asthma with (acute) exacerbation (3) Pneumonia Priority: Primary Status: Acute Qualifiers: Qualified Code(s): J18.9 - Pneumonia, unspecified organism (4) Sepsis Priority: Primary Status: Acute Qualifiers: Sepsis type: sepsis due to unspecified organism Qualified Code(s): A41.9 - Sepsis, unspecified organism (5) UTI (urinary tract infection) Priority: Secondary Status: Acute Qualifiers: Qualified Code(s): N39.0 - Urinary tract infection, site not specified (6) Altered mental status Priority: Secondary Status: Acute Qualifiers: Altered mental status type: disorientation Qualified Code(s): R41.0 - Disorientation, unspecified (7) History of CVA (cerebrovascular accident) Priority: Secondary Status: Chronic (8) Alzheimer's dementia Priority: Secondary Status: Chronic Qualifiers: Alzheimer's disease onset: late-onset Dementia behavioral disturbance: without behavioral disturbance Qualified Code(s): G30.1 - Alzheimer's disease with late onset; F02.80 - Dementia in other diseases classified elsewhere without behavioral disturbance (9) Hypertension Priority: Secondary Status: Chronic Qualifiers: Hypertension type: essential hypertension Qualified Code(s): I10 - Essential (primary) hypertension (10) NIKUNJ (acute kidney injury) Priority: Secondary Status: Acute - Discharge Medications Prescriptions: Ipratropium/Albuterol Neb [Duoneb] 3 ml IH Q6HR PRN #100 vial.neb PRN Reason: Shortness Of Breath/Wheezing Cephalexin [Keflex] 500 mg PO TID #9 capsule predniSONE [PredniSONE] 40 mg PO DAILY #4 tablet Home Medications: Acetaminophen [Tylenol] 500 mg PO TID PRN 12/30/16 [History] Atorvastatin [Lipitor] 10 mg PO HS 12/30/16 [History] Clopidogrel Bisulfate [Plavix] 75 mg PO DAILY 12/30/16 [History] Donepezil [Aricept] 10 mg PO HS 12/30/16 [History] Ergocalciferol (VITAMIN D2) [Vitamin D2] 50,000 unit PO QWEEK 12/30/16 [History] Furosemide [Lasix] 20 mg PO DAILY 12/30/16 [History] Loratadine [Allergy Relief] 10 mg PO DAILY 12/30/16 [History] Memantine HCl [Namenda Xr] 28 mg PO DAILY 12/30/16 [History] Metformin HCl [Metformin HCl ER] 750 mg PO DAILY 12/30/16 [History] Sertraline [Zoloft] 100 mg PO DAILY 12/30/16 [History] amLODIPine [Norvasc] 5 mg PO DAILY 12/30/16 [History] Cephalexin [Keflex] 500 mg PO TID #9 capsule 01/03/17 [Rx] Famotidine [Pepcid] 20 mg PO DAILY tab 01/03/17 [Rx] Ipratropium/Albuterol Neb [Duoneb] 3 ml IH Q6HR PRN #100 vial.neb 01/04/17 [Rx] predniSONE [PredniSONE] 40 mg PO DAILY #4 tablet 01/04/17 [Rx] Allergies/Adverse Reactions: 3 Allergy/AdvReac Type Severity Reaction Status Date / Time ciprofloxacin Allergy Anaphylaxis Verified 12/30/16 15:51 codeine Allergy Anaphylaxis Verified 12/30/16 15:51 Penicillins Allergy Anaphylaxis Verified 12/30/16 15:51 tetanus toxoid, adsorbed Allergy Anaphylaxis Verified 12/30/16 15:51 Tetracycline Allergy Anaphylaxis Verified 12/30/16 15:51 Date of admission: 12/31/16 04:26 Primary care physician: PCP NONE - Patient Status Disposition: Transfer SNF Condition: Fair Overall status at discharge: patient is back to baseline - Discharge Instructions Follow Up With: NONE,PCP [Primary Care Provider] - Additional Instructions: Need to f/u with PCP in one week - Diet and Activity Activity: as per physical therapy, wear oxygen at all times (3 lit) Diet: low salt diet Hospital course: Ms. Madrid is a 86 year old female presents from nursing facility with altered mental status. Patient has baseline dementia and is usually conversational however only alert and oriented to self but not to place or time (confirmed by daughter). Patient was sent to ER by nursing facility as she was confused and less responsive in the past few days and had a temperature 100.4. During my evaluation of the patient, she is awake and alert to self. Pleasant and very talkative, follows commands. ER workup showed the patient had a mild leukocytosis, lactic acidosis, urinalysis (dirty catch). Pt was admitted for sepsis with UTI and Pneumonia. She was started on empirical abx with Rocephin and Azithromycin. Her blood cx 1/2 growing staph auricularis which seems to be contaminated. Her Urine cx did not grow any bacteria. Pt also seems to be having reactive airway disease / bronco spasm triggered by pneumonia. I started her on short duration of steroid therapy y/d along with duoneb treatment. Her symptoms much better today, wheezing also improved. She still required 3 lit O2 continuously. Will d/c her back to ECF in stable condition today. - Time Spent with Patient Total time spent providing and/or coordinating discharge services: - Constitutional Vitals: Temp Pulse Resp BP Pulse Ox 98.5 F 50 20 151/96 96 01/04/17 11:25 01/04/17 11:25 01/04/17 11:43 01/04/17 11:25 01/04/17 11:43 General appearance: Present: A&O X 1, pleasant, no acute distress, obese - Head Head exam: Present: atraumatic, normal inspection - Respiratory Respiratory exam: Present: decreased breath sounds, wheezes. Absent: rales, respiratory distress, rhonchi - Cardiovascular Cardiovascular exam: Present: +S1, +S2. Absent: systolic murmur - Extremities Exam Extremities exam: Absent: calf tenderness, pedal edema, tenderness - Psychiatric Additional comments: pleasantly demented
--- NOTE | 2017-01-04 13:46 | Physician Discharge Referral ---
ExtendedCare Referral Info Transfer To: [facility] Institutional Level of Care: Skilled - Diagnosis (1) Acute and chronic respiratory failure with hypoxia Status: Acute (2) Reactive airway disease with acute exacerbation Status: Acute (3) Pneumonia Status: Acute (4) Sepsis Status: Acute (5) UTI (urinary tract infection) Status: Acute (6) Altered mental status Status: Acute (7) History of CVA (cerebrovascular accident) Status: Chronic (8) Alzheimer's dementia Status: Chronic (9) Hypertension Status: Chronic (10) NIKUNJ (acute kidney injury) Status: Acute - Transfer Medications Prescriptions: Ipratropium/Albuterol Neb [Duoneb] 3 ml IH Q6HR PRN #100 vial.neb PRN Reason: Shortness Of Breath/Wheezing Cephalexin [Keflex] 500 mg PO TID #9 capsule predniSONE [PredniSONE] 40 mg PO DAILY #4 tablet Home Medications: Acetaminophen [Tylenol] 500 mg PO TID PRN 12/30/16 [History] Atorvastatin [Lipitor] 10 mg PO HS 12/30/16 [History] Clopidogrel Bisulfate [Plavix] 75 mg PO DAILY 12/30/16 [History] Donepezil [Aricept] 10 mg PO HS 12/30/16 [History] Ergocalciferol (VITAMIN D2) [Vitamin D2] 50,000 unit PO QWEEK 12/30/16 [History] Furosemide [Lasix] 20 mg PO DAILY 12/30/16 [History] Loratadine [Allergy Relief] 10 mg PO DAILY 12/30/16 [History] Memantine HCl [Namenda Xr] 28 mg PO DAILY 12/30/16 [History] Metformin HCl [Metformin HCl ER] 750 mg PO DAILY 12/30/16 [History] Sertraline [Zoloft] 100 mg PO DAILY 12/30/16 [History] amLODIPine [Norvasc] 5 mg PO DAILY 12/30/16 [History] Cephalexin [Keflex] 500 mg PO TID #9 capsule 01/03/17 [Rx] Famotidine [Pepcid] 20 mg PO DAILY tab 01/03/17 [Rx] Ipratropium/Albuterol Neb [Duoneb] 3 ml IH Q6HR PRN #100 vial.neb 01/04/17 [Rx] predniSONE [PredniSONE] 40 mg PO DAILY #4 tablet 01/04/17 [Rx] Allergies/Adverse Reactions: 3 Allergy/AdvReac Type Severity Reaction Status Date / Time ciprofloxacin Allergy Anaphylaxis Verified 12/30/16 15:51 codeine Allergy Anaphylaxis Verified 12/30/16 15:51 Penicillins Allergy Anaphylaxis Verified 12/30/16 15:51 tetanus toxoid, adsorbed Allergy Anaphylaxis Verified 12/30/16 15:51 Tetracycline Allergy Anaphylaxis Verified 12/30/16 15:51 - Respiratory Orders Oxygen / L per min (3lit) Smoking Cessation: Smoking cessation has been advised. For more information, call the [place] Tobacco Quit Line at 0-885-WLIANOW. CERTIFICATION: I certify that the transfer of the above named patient to an Extended Care Facility is necessary for the continuing treatment of the diagnosis listed. The above information is true and accurate reflection of patient's current condition. Confidential - Redisclosure prohibited without a patient's written consent.
== END 2017-01-04 15:41 | DRG 871 ==
LOC: EMEROO 15:32 → 3BNU 15:32
PROVIDERS: ADMIT Internal Medicine; ATTEND Registered Nurse